=== PATIENT | female | born 1985 | race Caucasian/White ===

== ENCOUNTER 2016-12-11 09:40 | Outpatient (CLI) | payer OTHER ==
--- NOTE | 2016-12-11 10:23 | DIAGNOSTIC IMAGING REPORT ---
PROCEDURE: XR ANKLE 3 OR 4 VIEWS - RIGHT INDICATION: LEFT KNEE INJURY/ FOOT PX TECHNIQUE: Four views. COMPARISON: None. FINDINGS: Osseous structures and joint spaces are normal. IMPRESSION: 1. Normal right ankle.
--- NOTE | 2016-12-11 10:37 | DIAGNOSTIC IMAGING REPORT ---
PROCEDURE: XR FOOT 3 VIEWS - RIGHT INDICATION: LEFT KNEE INJURY/ FOOT PX TECHNIQUE: Three views. COMPARISON: None. FINDINGS: There is a fracture of the navicular bone at the point of attachment of the posterior tibial tendon. There is minimal displacement. IMPRESSION: 1. Navicular fracture. Minimal displacement.
--- NOTE | 2016-12-11 10:39 | DIAGNOSTIC IMAGING REPORT ---
PROCEDURE: XR KNEE 4 VIEWS - LEFT INDICATION: LEFT KNEE INJURY/ FOOT PX TECHNIQUE: Four views. COMPARISON: Left knee films 06/05/2016 FINDINGS: Moderate left knee effusion. Osseous structures and joint spaces are otherwise normal. IMPRESSION: 1. Moderate left knee effusion. Consider occult fracture or internal derangement.
== END 2016-12-11 23:00 ==
LOC: XR SRH 09:40
DX: S92.252A Displaced fracture of navicular [scaphoid] of left foot, initial encounter for closed fracture (principal); M25.462 Effusion, left knee